=== PATIENT | female | born 1990 | race African-American/Black ===

== ENCOUNTER 2016-09-06 06:20 | Emergency (ER) | payer SELFPAY ==
[2016-09-06 06:34] VITALS: BMI 29.9
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
[2016-09-06] MEDS ORDERED: TORADOL 60 MG VIAL IM ONE (06:41)
[2016-09-06] MEDS ORDERED: TORADOL 60 MG VIAL ONE (07:06)
[2016-09-06] MEDS ORDERED: ADACEL TDaP IM ONE ×2 (07:19→07:20)
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
[2016-09-06] MEDS ORDERED: TETRACAINE HCL ONE (08:08)
[2016-09-06 08:15] VITALS: BP 147/99
[2016-09-06] MEDS ORDERED: GENTAMICIN SULF (OPHTH) AFFEYE ONE (08:30)
[2016-09-06] MEDS ORDERED: NEOSPORIN OINT TOP ONE (08:32)
[2016-09-06] MEDS ORDERED: NEOSPORIN OINT ONE (08:33)
[2016-09-06] MEDS ORDERED: GENTAMICIN SULF (OPHTH) ONE (08:37)
== END 2016-09-06 08:45 | disposition home or self-care (01) ==
LOC: ER 06:20
DX: S05.12XA Contusion of eyeball and orbital tissues, left eye, initial encounter (principal); T14.8 Other injury of unspecified body region; I10 Essential (primary) hypertension; M54.5 Low back pain; Y04.0XXA Assault by unarmed brawl or fight, initial encounter; R51 Headache
CPT/HCPCS: 70450; 70486; 70490; 72125; 90471; 96372; 99282; 99283; J1885

== ENCOUNTER 2016-11-20 18:10 | Emergency (ER) | payer SELFPAY ==
[2016-11-20 18:15] VITALS: BP 149/98; BMI 29.0
--- NOTE | 2016-11-20 18:59 | DR.GENAD ---
HPI - PCP Primary Care Physician: NELDA RIVERA Comment HPI Comment: Pt c/o vaginal spotting today. She had a normal period ~ 2 weeks ago.She admits to recent sexual activity but denies vaginal discharge. She does not use any form of control. She admits to urinary frequency but denies burning upon urination and urinary urgency. - Complaint/Symptoms Chief Complaint:: PT C/O VAGINAL BLEEDING PT STATES SHE JUST HAD HER PERIOD 2 WEEKS AGO AND SHE STARTED BLEEDING WITH CRAMPING AGAIN THIS AM. - Nurses notes reviewed Nurses Notes Review: Yes - Source History Provided: Patient - Mode of Arrival Mode of Arrival: Ambulatory - Timing Onset of Chief Complaint: 11/20/16 - Duration Duration: Unknown - Severity Severity: Mild - Associated Signs and Symptoms Associated Signs and Symptoms: cramping PMH - PMH Past Medical History: Yes Past Medical History: Hypertension Past Surgical History: Yes Surgical History: - Family History History of Family Medical Conditions: Yes Family Medical History: Diabetes Mellitus, Hypertension - Social History Does patient currently use any type of tobacco product: Yes Have you used tobacco products in the last 12 months: Yes Type of Tobacco Use: Cigarettes Does any household member use tobacco: Yes Alcohol Use: Occasionally Do you use any recreational Drugs:: No Lives With: Family Lives Where: Home - infectious screening In the last 2 months have you had wt loss of >10#?: NO Have you had fever, night sweats or hemotysis?: No Have you traveled outside the country in the last 6 months?: No Isolation: Standard ROS - Review of Systems Constitutional: No Symptoms Reported Respiratoy: No Symptoms Reported Cardiovascular: No Symptoms Reported Gastrointestinal/Abdominal: No Symptoms Reported Genitourinary: Frequency, Bleeding. negative: Discharge Neurological: No Symptoms Reported Musculoskeletal: No Symptoms Reported Integumentary: No Symptoms Reported Psychiatric: No Symptoms Reported PE - Vital Signs Vitals: Temperature 98.4 F Pulse Rate 99 Respiratory Rate 20 Blood Pressure [Right Arm] 147/99 Blood Pressure 149/98 O2 Sat by Pulse Oximetry 98 - General Limitations: No Limitations General Appearance: Alert, In No Apparent Distress - Chest Chest Inspection: Normal Inspection - Respiratory Respiratory Exam: Normal Lung Sounds Bilat Respiratory Exam: Bilateral Clear to Auscultation - Cardiovascular Cardiovascular Exam: Regular Rate, Normal Rhythm, Normal Heart Sounds - Abdominal Exam Abdominal Exam: Normal Bowel Sounds, Soft - Extremities Extremities Exam: Normal Inspection - Neurologic Neurological Exam: Alert, Oriented X3, CN II-XII Intact - Psychiatric Psychiatric Exam: Normal Affect, Normal Mood - Skin Skin Exam: Warm, Dry, Intact, Normal Color MDM - Differential Diagnosis Differential Diagnosis: hypermenorrhea, vaginitis, paost coital spotting Course - Reevaluation 1st: Resolved ROR - Labs Reviewed Laboratory: HCG, Qual Negative <10 mIU/mL 11/20/16 19:02 Specimen Type Clean catch urine 11/20/16 18:45 Urine Color Yellow (YELLOW) 11/20/16 18:45 Urine Appearance Slightly hazy (CLEAR) 11/20/16 18:45 Urine pH 6.0 (5.0 - 8.0) 11/20/16 18:45 Ur Specific [place] 1.015 (1.000-1.030) 11/20/16 18:45 Urine Protein Negative (NEGATIVE) 11/20/16 18:45 Urine Glucose (UA) Negative (NEGATIVE) 11/20/16 18:45 Urine Ketones Negative (NEGATIVE) 11/20/16 18:45 Urine Occult Blood 5+ (NEGATIVE) 11/20/16 18:45 Urine Nitrite Negative (NEGATIVE) 11/20/16 18:45 Urine Bilirubin Negative (NEGATIVE) 11/20/16 18:45 Urine Urobilinogen Normal (NORMAL) 11/20/16 18:45 Ur Leukocyte Esterase 2+ (NEGATIVE) 11/20/16 18:45 Urine RBC 0-3 /HPF (NEGATIVE) 11/20/16 18:45 Urine WBC 2-6 /HPF (NEGATIVE) 11/20/16 18:45 Ur Squamous Epith Cells Many /HPF (NEGATIVE) 11/20/16 18:45 Urine Bacteria Trace /HPF (NEGATIVE) 11/20/16 18:45 Urine Trichomonas Moderate /HPF (NEGATIVE) 11/20/16 18:45 Ur Culture Indicated? No/not indicated 11/20/16 18:45 - Diagnosis Discharge Problem: Hypertension, benign, Menometrorrhagia, Trichomoniasis of vagina Hypermenorrhea Qualifiers: Menorrahagia type: with regular cycle Qualified Code(s): N92.0 - Excessive and frequent menstruation with regular cycle - Discharge Plan Condition: Stable - Follow ups/Referrals Follow ups/Referrals: NFD,None [Primary Care Provider] - 3 days - Instructions Instructions: Hypertension, [id number], Dysmenorrhea, [id number]
[2016-11-20 19:01] LABS: BILIRUBIN,URINE NEGATIVE (NEGATIVE); BLOOD/HEMOGLOBIN,URINE 5+ (NEGATIVE); GLUCOSE, URINE NEGATIVE (NEGATIVE); KETONES,URINE NEGATIVE (NEGATIVE); LEUKOCYTE ESTERASE ,URINE 2+ (NEGATIVE); NITRITES,URINE NEGATIVE (NEGATIVE); PROTEIN,URINE NEGATIVE (NEGATIVE); UROBILINOGEN,URINE NORMAL (NORMAL)
[2016-11-20 19:21] LABS: SERUM PREGNANCY TEST, QUAL NEGATIVE <10 mIU/mL
[2016-11-20 19:21] LABS: APPEARANCE,URINE SLIGHTLY HAZY (CLEAR); BACTERIA,URINE TRACE /HPF (NEGATIVE); COLOR,URINE YELLOW (YELLOW); RBC,URINE 0-3 /HPF (NEGATIVE); SQUAMOUS EPITHELIAL CELL,UR MANY /HPF (NEGATIVE); TRICHOMONAS,URINE MODERATE /HPF (NEGATIVE)
[2016-11-20] MEDS ORDERED: ROCEPHIN VIAL 2 GM IM ONE (19:50)
[2016-11-20] MEDS ORDERED: ROCEPHIN VIAL 2 GM ONE (19:52)
[2016-11-20] MEDS ORDERED: FLAGYL TAB 500 MG PO SCH (20:00)
[2016-11-20] MEDS ORDERED: FLAGYL TAB 500 MG PO ONE (20:05)
== END 2016-11-20 20:24 | disposition home or self-care (01) ==
LOC: ER 18:19
DX: N92.0 Excessive and frequent menstruation with regular cycle (principal); I10 Essential (primary) hypertension; N92.1 Excessive and frequent menstruation with irregular cycle; A59.01 Trichomonal vulvovaginitis
CPT/HCPCS: 36415; 81001; 84703; 99282; J0696

== ENCOUNTER 2017-02-05 19:57 | Emergency (ER) | payer SELFPAY ==
[2017-02-05 20:03] VITALS: BMI 31.3
--- NOTE | 2017-02-05 22:15 | DR.GENAD ---
HPI - PCP Primary Care Physician: NELDA Darby HPI Comment HPI Comment: HISTORY BELOW. - Complaint/Symptoms Chief Complaint Doctors Comments: MIGRAINE HEADACHE TIMES FEW DAYS. BP ELEVATED. OUT OF BP MEDICATION. Chief Complaint:: NAUSEA AND MIGRAINE - Nurses notes reviewed Nurses Notes Review: Yes - Source History Provided: Patient - Mode of Arrival Mode of Arrival: Ambulatory - Timing Onset of Chief Complaint: 02/02/17 Came on: Suddenly - Duration Duration: Constant Duration: Days - Severity Severity: Moderate PMH - PMH Past Medical History: Yes Past Medical History: Hypertension Past Surgical History: Yes Surgical History: - Family History History of Family Medical Conditions: Yes Family Medical History: Diabetes Mellitus, Hypertension - Social History Does patient currently use any type of tobacco product: No Have you used tobacco products in the last 12 months: No Type of Tobacco Use: Cigarettes Alcohol Use: Occasionally Do you use any recreational Drugs:: No Lives With: Family Lives Where: Home - infectious screening In the last 2 months have you had wt loss of >10#?: NO Have you had fever, night sweats or hemotysis?: No Have you traveled outside the country in the last 6 months?: No Isolation: Standard ROS - Review of Systems Constitutional: No Symptoms Reported Eyes: No Symptoms Reported ENTM: No Symptoms Reported Respiratoy: No Symptoms Reported Cardiovascular: Other (BP ELEVATED). negative: Chest Pain Gastrointestinal/Abdominal: No Symptoms Reported Genitourinary: No Symptoms Reported Neurological: Headache Integumentary: No Symptoms Reported Hematologic/Lymphatic: No Symptoms Reported Endocrine: No Symptoms Reported All Other Systems: Reviewed and Negative PE - Vital Signs Vitals: Temperature 98.3 F Pulse Rate [Left Brachial] 79 Pulse Rate 94 Respiratory Rate 20 Blood Pressure [Left Arm] 138/88 Blood Pressure [Right Arm] 147/99 Blood Pressure 168/96 O2 Sat by Pulse Oximetry 98 - General Limitations: No Limitations General Appearance: Alert - Head Head Exam: Normal Inspection - Eyes Eye exam: Normal Appearance - ENT ENT Exam: Normal External Ear Exam External Ear Exam: Normal External Inspection TM/Canal Exam: Bilateral Normal Nose Exam: Normal Nose Exam Mouth Exam: Normal Inspection Throat Exam: Normal Inspection - Neck Neck Exam: Trachea Midline - Chest Chest Inspection: Symmetric Chest Wall Rise - Respiratory Respiratory Exam: Normal Lung Sounds Bilat Respiratory Exam: Bilateral Clear to Auscultation - Cardiovascular Cardiovascular Exam: Regular Rate, Normal Rhythm, Normal Heart Sounds - Abdominal Exam Abdominal Exam: Normal Bowel Sounds, Soft. negative: Tenderness - Extremities Extremities Exam: Normal Inspection - Back Back Exam: Normal Inspection - Neurologic Neurological Exam: Alert, Oriented X3, CN II-XII Intact, Normal Gait, Reflexes Normal. negative: Motor Sensory Deficit - Psychiatric Psychiatric Exam: Normal Affect, Normal Mood - Skin Skin Exam: Normal Color MDM - Additional Information Additional Information Obtained From: Family - Differential Diagnosis Differential Diagnosis: MIGRAINE HEADACHE, HYPERTENSION Course - Treatment Treatment: SEE ORDERS. IM PAIN MED AND CLONIDINE PO, PAIN AND HTN IMPROVED. - Education/Counseling Education/Counseling: Patient, Education Educated On: Treatment, Diagnosis, Needs for Follow Up - Diagnosis Discharge Problem: Migraine Qualifiers: Migraine type: without aura Status migrainosus presence: without status migrainosus Intractability: intractable Qualified Code(s): G43.019 - Migraine without aura, intractable, without status migrainosus Hypertension Qualifiers: Hypertension type: essential hypertension Qualified Code(s): I10 - Essential ( primary) hypertension - Discharge Plan Disposition: 01 HOME, SELF-CARE Condition: Stable Prescriptions: [id number] [Fioricet Tab] 1 tab PO Q8H PRN #15 tab PRN Reason: Migraine Headache Clonidine HCl [CATAPRES 0.1 MG TAB *] 0.1 mg PO BID #60 tab - Follow ups/Referrals Follow ups/Referrals: NFD,None [Primary Care Provider] - 3 days - Instructions Instructions: Migraine Headache, [id number]-[id number], Hypertension, Dvah-[id number] Additional Instructions: RETURN TO ED IF WORSE.
[2017-02-05] MEDS ORDERED: CATAPRES TAB 0.1 MG PO ONE (22:22)
[2017-02-05] MEDS ORDERED: ZOFRAN INJ 4 MG VIAL IM ONE (22:22)
[2017-02-05] MEDS ORDERED: TORADOL 60 MG VIAL IM ONE (22:22)
[2017-02-05] MEDS ORDERED: CATAPRES TAB 0.1 MG ONE (22:44)
[2017-02-05] MEDS ORDERED: TORADOL 60 MG VIAL ONE (22:44)
[2017-02-05] MEDS ORDERED: ZOFRAN INJ 4 MG VIAL ONE (22:44)
[2017-02-05 23:28] VITALS: BP 138/88
== END 2017-02-05 23:42 | disposition home or self-care (01) ==
LOC: ER 20:07
DX: G43.019 Migraine without aura, intractable, without status migrainosus (principal); I10 Essential (primary) hypertension
CPT/HCPCS: 96372; 99282; J1885; J2405

== ENCOUNTER 2017-03-15 09:25 | Emergency (ER) | payer SELFPAY ==
[2017-03-15 09:35] VITALS: BMI 30.5
[2017-03-15] MEDS ORDERED: CATAPRES TAB 0.1 MG PO ONE (09:49)
[2017-03-15] MEDS ORDERED: CATAPRES TAB 0.1 MG ONE (09:49)
--- NOTE | 2017-03-15 10:03 | DR.GENAD ---
HPI - PCP Primary Care Physician: NFD - Complaint/Symptoms Chief Complaint Doctors Comments: Patient states that she has had hypertensin since the age of 17. She usually takes clonidine 0.2mg and has been out for 2- 3 weeks. The initial prescription was dispensed in the ED. She has not followed with a physician. She admits to a frontal headache but its no different than usual. Chief Complaint:: PT STATES " I HAVE BEEN OUT OF MY BP MEDS FOR A WHILE AND I HAVE NO MD AND MY HEAD HAS BEEN BOTHER ME AND HURTING ,, AND HER BP AT HOME WAS 176/100..BR Self Treatment fo Chief Complaint: NONE - Source History Provided: Patient - Mode of Arrival Mode of Arrival: Ambulatory - Timing Onset of Chief Complaint: 03/14/17 PMH - PMH Past Medical History: Yes Past Medical History: Hypertension Past Surgical History: Yes Surgical History: - Family History History of Family Medical Conditions: No Family Medical History: Diabetes Mellitus, Hypertension - Social History Does patient currently use any type of tobacco product: Yes Have you used tobacco products in the last 12 months: Yes Type of Tobacco Use: Cigarettes How many years tobacco product used: 5 Does any household member use tobacco: No Alcohol Use: None Do you use any recreational Drugs:: No Lives With: Family Lives Where: Home - infectious screening In the last 2 months have you had wt loss of >10#?: NO Have you had fever, night sweats or hemotysis?: No Have you traveled outside the country in the last 6 months?: No Isolation: Standard ROS - Review of Systems Eyes: No Symptoms Reported ENTM: No Symptoms Reported Respiratoy: No Symptoms Reported Cardiovascular: No Symptoms Reported Gastrointestinal/Abdominal: No Symptoms Reported Genitourinary: No Symptoms Reported Neurological: Headache Musculoskeletal: No Symptoms Reported Integumentary: No Symptoms Reported Hematologic/Lymphatic: No Symptoms Reported Endocrine: No Symptoms Reported Psychiatric: No Symptoms Reported All Other Systems: Reviewed and Negative PE - Vital Signs Vitals: Temperature 98.1 F Pulse Rate [Right Brachial] 78 Pulse Rate 78 Respiratory Rate 18 Blood Pressure [Left Arm] 144/93 Blood Pressure [Right Arm] 148/106 Blood Pressure 162/105 O2 Sat by Pulse Oximetry 97 - General Limitations: No Limitations General Appearance: Alert, In No Apparent Distress - Head Head Exam: Normal Inspection, Atraumatic - Eyes Eye exam: Normal Appearance, PERRL, EOMI - ENT ENT Exam: Normal Exam External Ear Exam: Normal External Inspection TM/Canal Exam: Bilateral Normal Nose Exam: Normal Nose Exam Mouth Exam: Normal Inspection Throat Exam: Normal Inspection - Neck Neck Exam: Normal Inspection, Full ROM - Chest Chest Inspection: Normal Inspection - Respiratory Respiratory Exam: Normal Lung Sounds Bilat Respiratory Exam: Bilateral Clear to Auscultation - Cardiovascular Cardiovascular Exam: Regular Rate, Normal Rhythm - Abdominal Exam Abdominal Exam: Normal Inspection, Normal Bowel Sounds Abdominal Tenderness: negative: RUQ, RLQ, LUQ, LLQ, Epigastrium, Suprapubic, Diffuse, Mild, Moderate, Severe, Other - Extremities Extremities Exam: Normal Inspection, Full ROM - Back Back Exam: Normal Inspection, Full ROM - Neurologic Neurological Exam: Alert, Oriented X3, CN II-XII Intact - Psychiatric Psychiatric Exam: Normal Affect, Normal Mood - Skin Skin Exam: Warm, Dry, Intact Course - Reevaluation 1st: Improved - Education/Counseling Education/Counseling: Education, Counseling Educated On: Treatment, Diagnosis, Prognosis, Needs for Follow Up ROR - Labs Reviewed Result Diagrams: 03/15/17 11:20 Laboratory: Sodium 137 mmol/L (136-145) 03/15/17 11:20 Corrected Sodium TNP 03/15/17 11:20 Potassium 4.0 mmol/L (3.5-5.1) 03/15/17 11:20 Chloride 104 mmol/L (98-107) 03/15/17 11:20 Carbon Dioxide 27.2 mmol/L (21-32) 03/15/17 11:20 BUN 7 mg/dL (7-18) 03/15/17 11:20 Creatinine 0.75 mg/dL (0.55-1.02) 03/15/17 11:20 Est GFR (MDRD) Af Amer > 60 (>60) 03/15/17 11:20 Est GFR (MDRD) Non-Af > 60 (>60) 03/15/17 11:20 Glucose 92 mg/dL (65-99) 03/15/17 11:20 Calcium 8.3 mg/dL (8.5-10.1) L 03/15/17 11:20 - Diagnosis Discharge Problem: Hypertension Qualifiers: Hypertension type: essential hypertension Qualified Code(s): I10 - Essential ( primary) hypertension - Discharge Plan Condition: Stable Prescriptions: Clonidine HCl [CATAPRES 0.2 MG TAB *] 0.2 mg PO DAILY #10 tab - Follow ups/Referrals Follow ups/Referrals: NFD,None [Primary Care Provider] - 3 days - Instructions Instructions: Hypertension, [id number]
[2017-03-15] MEDS ORDERED: TORADOL 60 MG VIAL IM ONE (10:07)
[2017-03-15] MEDS ORDERED: TORADOL 60 MG VIAL ONE (10:08)
[2017-03-15] MEDS ORDERED: CATAPRES TAB 0.2 MG PO ONE (10:47)
[2017-03-15] MEDS ORDERED: CATAPRES TAB 0.2 MG ONE (10:49)
[2017-03-15 11:09] VITALS: BP 144/93
[2017-03-15 11:36] LABS: BLOOD UREA NITROGEN 7 mg/dL (7-18); CALCIUM 8.3 mg/dL (8.5-10.1); CARBON DIOXIDE 27.2 mmol/L (21-32); CHLORIDE 104 mmol/L (98-107); CREATININE 0.75 mg/dL (0.55-1.02); SODIUM 137 mmol/L (136-145); eGFR BLACK RACES > 60 (>60); eGFR NON BLACK RACES > 60 (>60)
== END 2017-03-15 11:56 | disposition home or self-care (01) ==
LOC: ER 09:38
DX: I10 Essential (primary) hypertension (principal)
CPT/HCPCS: 36415; 80048; 96372; 99282; J1885

== ENCOUNTER 2017-05-03 12:08 | Emergency (ER) | payer SELFPAY ==
[2017-05-03 12:14] VITALS: BP 127/86; BMI 31.0
--- NOTE | 2017-05-03 12:22 | DR.GENAD ---
HPI - PCP Primary Care Physician: mariangel - HPI Comment HPI Comment: HISTORY BELOW. - Complaint/Symptoms Chief Complaint Doctors Comments: PATIENT DROP A SAFE ON HER RT ANKLE AND LEG AND FOOT. ABRSIONS AND CUTS NOTED. TD NOT UTD. PROBLEM BEARING WEIGHT. Chief Complaint:: pt stated she dropped a safe on her right ankle yesterday. she was at work today and could not take the pain any longer. - Nurses notes reviewed Nurses Notes Review: Yes - Source History Provided: Patient - Mode of Arrival Mode of Arrival: Ambulatory - Timing Onset of Chief Complaint: 05/02/17 Came on: Suddenly - Duration Duration: Constant Duration: Days - Severity Severity: Moderate PMH - PMH Past Medical History: Yes Past Medical History: Hypertension Past Surgical History: Yes Surgical History: - Family History History of Family Medical Conditions: Yes Family Medical History: Diabetes Mellitus, Hypertension - Social History Does patient currently use any type of tobacco product: Yes Have you used tobacco products in the last 12 months: Yes Type of Tobacco Use: Cigarettes How many years tobacco product used: 7 Does any household member use tobacco: No Alcohol Use: None Do you use any recreational Drugs:: No Lives With: Family Lives Where: Home - infectious screening In the last 2 months have you had wt loss of >10#?: NO Have you had fever, night sweats or hemotysis?: No Have you traveled outside the country in the last 6 months?: No Isolation: Standard ROS - Review of Systems Constitutional: No Symptoms Reported Eyes: No Symptoms Reported ENTM: No Symptoms Reported Respiratoy: No Symptoms Reported Cardiovascular: No Symptoms Reported Gastrointestinal/Abdominal: No Symptoms Reported Genitourinary: No Symptoms Reported Neurological: No Symptoms Reported Musculoskeletal: Right, Leg, Ankle, Foot Integumentary: Bruises, Other (ABRASIONS) Hematologic/Lymphatic: No Symptoms Reported Endocrine: No Symptoms Reported All Other Systems: Reviewed and Negative PE - Vital Signs Vitals: Temperature 98.7 F Pulse Rate 75 Respiratory Rate 16 Blood Pressure [Left Arm] 144/93 Blood Pressure [Right Arm] 148/106 Blood Pressure 127/86 O2 Sat by Pulse Oximetry 100 - General Limitations: No Limitations General Appearance: Alert - Head Head Exam: Normal Inspection - Eyes Eye exam: Normal Appearance - ENT ENT Exam: Normal External Ear Exam External Ear Exam: Normal External Inspection TM/Canal Exam: Bilateral Normal Nose Exam: Normal Nose Exam Mouth Exam: Normal Inspection Throat Exam: Normal Inspection - Neck Neck Exam: Trachea Midline - Chest Chest Inspection: Symmetric Chest Wall Rise - Respiratory Respiratory Exam: Normal Lung Sounds Bilat Respiratory Exam: Bilateral Clear to Auscultation - Cardiovascular Cardiovascular Exam: Regular Rate, Normal Rhythm, Normal Heart Sounds - Abdominal Exam Abdominal Exam: Normal Bowel Sounds, Soft. negative: Tenderness - Extremities Extremities Exam: Normal Inspection (RT ANKLE, FOOT AND LOWER LEG SWOLLEN AND TENDER. PULSE INTACT. ABRASIONS PRESENT.), Tenderness - Back Back Exam: Normal Inspection - Neurologic Neurological Exam: Alert, Oriented X3 - Psychiatric Psychiatric Exam: Normal Affect, Normal Mood - Skin Skin Exam: Erythema MDM - Differential Diagnosis Differential Diagnosis: CONTUSION, FRACTURE SPRAIN RT LEG, ANKLE AND FOOT. Course - Treatment Treatment: SEE ORDERS. - Education/Counseling Education/Counseling: Patient, Education Educated On: Diagnosis, Needs for Follow Up ROR - XRAY XRAY Interpreted by: Radiologist XRAY Findings: REPORT DISCUSS WITH PATIENT. - Diagnosis Discharge Problem: Abrasion Contusion of right lower leg Qualifiers: Encounter type: initial encounter Qualified Code(s): S80.11XA - Contusion of right lower leg, initial encounter Sprain of right ankle Qualifiers: Encounter type: initial encounter Involved ligament of ankle: unspecified ligament Qualified Code(s): S93.401A - Sprain of unspecified ligament of right ankle, initial encounter Contusion of right foot Qualifiers: Encounter type: initial encounter Qualified Code(s): S90.31XA - Contusion of right foot, initial encounter - Discharge Plan Disposition: HOME, SELF-CARE Condition: Stable Prescriptions: Acetaminophen with Codeine [Tylenol/Codeine #3 300-30 mg] 1 tab PO Q4-6H PRN # 15 tab PRN Reason: Pain Cephalexin [KEFLEX CAP 500 MG *] 500 mg PO TID #30 cap - Follow ups/Referrals Follow ups/Referrals: ABDIEL BEARDEN [Primary Care Provider] - 3 days - Instructions Instructions: Acute Ankle Sprain With Phase I Rehab-SportsMed, Musculoskeletal Pain Additional Instructions: RETURN TO ED IF WORSE.
--- NOTE | 2017-05-03 14:09 | RAD ---
HISTORY: Status post crush injury with right leg pain Study: Three views right ankle Comparison: None Findings: No acute cortical disruption or dislocation can be identified. Tissue swelling is noted dorsal and l aterally. IMPRESSION: Tissue swelling without acute bony radiographic abnormality. Reported By:
--- NOTE | 2017-05-03 14:10 | RAD ---
Examination: Right foot, three views History: Trauma Findings: No definite fracture, dislocation or joint space abnormality. Impression: No acute findings. Reported By:
--- NOTE | 2017-05-03 14:11 | RAD ---
Examination: Right lower leg, AP and lateral views History: Trauma Findings: There is no evidence for tibial or fibular fracture/dislocation. There is soft tissue swell ing over the lower leg and lateral malleolus. Impression: Soft tissue swelling, no fracture identified. Reported By:
[2017-05-03] MEDS ORDERED: BACITRACIN ZINC ONE (14:25)
[2017-05-03] MEDS ORDERED: ADACEL TDaP IM ONE ×2 (14:32→14:33)
== END 2017-05-03 14:51 | disposition home or self-care (01) ==
LOC: ER 12:08
DX: S80.11XA Contusion of right lower leg, initial encounter (principal); S93.401A Sprain of unspecified ligament of right ankle, initial encounter; S90.31XA Contusion of right foot, initial encounter; X58.XXXA Exposure to other specified factors, initial encounter; Y92.69 Other specified industrial and construction area as the place of occurrence of the external cause
CPT/HCPCS: 73590; 73610; 73630; 90471; 99282

== ENCOUNTER 2017-09-01 16:23 | Emergency (ER) | payer SELFPAY ==
[2017-09-01 16:27] VITALS: BP 168/88; BMI 25.8
--- NOTE | 2017-09-01 16:42 | DR.GENAD ---
HPI - PCP Primary Care Physician: ABDIEL BEARDEN - HPI Comment HPI Comment: DENIES SYMTOMS. REFER TO PCP FOR FURTHER EVALUATION. - Complaint/Symptoms Chief Complaint Doctors Comments: REQUESTING FOR DIAGNOSTIC TESTING FOR STD. SOME ONE Chief Complaint:: PATIENT WANTS TO GET CHECKED FOR STD'S DUE TO RUMORS GOING AROUND. PATIENT DENIES ANY DISCHARGE OR ANYTHING. - Source History Provided: Patient - Mode of Arrival Mode of Arrival: Ambulatory - Timing Onset of Chief Complaint: 09/01/17 PMH - PMH Past Medical History: Yes Past Medical History: Hypertension Past Surgical History: Yes Surgical History: - Family History History of Family Medical Conditions: Yes Family Medical History: Diabetes Mellitus, Hypertension - Social History Does patient currently use any type of tobacco product: Yes Have you used tobacco products in the last 12 months: Yes Type of Tobacco Use: Cigarettes Does any household member use tobacco: No Do you use any recreational Drugs:: No Lives With: Family Lives Where: Home - infectious screening In the last 2 months have you had wt loss of >10#?: NO Have you had fever, night sweats or hemotysis?: No Have you traveled outside the country in the last 6 months?: No Isolation: Standard PE - Vital Signs Vitals: Temperature 98.3 F Pulse Rate 89 Respiratory Rate 20 Blood Pressure [Left Arm] 144/93 Blood Pressure [Right Arm] 148/106 Blood Pressure 168/88 O2 Sat by Pulse Oximetry 100 - Diagnosis Discharge Problem: Patient request for diagnostic testing - Discharge Plan Disposition: HOME, SELF-CARE Condition: Stable - Follow ups/Referrals Follow ups/Referrals: ABDIEL BEARDEN [Primary Care Provider] - 3 days - Instructions Instructions: Sexually Transmitted Infection Additional Instructions: RETURN TO ED IF WORSE. REQUEST FOR LAB TEST. SEE PCP PHYSICIAL TO EVALUATE FOR TEST THIS WEEK.
== END 2017-09-01 17:14 | disposition home or self-care (01) ==
LOC: ER 16:31
DX: Z11.3 Encounter for screening for infections with a predominantly sexual mode of transmission (principal)
CPT/HCPCS: 99281; 99282

== ENCOUNTER 2022-10-20 08:41 | Observation (INO) ==
[2022-10-20 08:46] VITALS: BMI 34.2
--- NOTE | 2022-10-20 08:54 | DR.CP ---
HPI Time Seen Time Seen by Provider: 10/20/22 08:52 PCP Primary Care Physician: DR. DUEÑAS HPI Comment HPI Comment: PATIENT IS 32YR OLD FEMALE IN ER WITH CHEST PAIN, DIZZINESS, NAUSEA AND DIAPHORESIS THAT STARTED THIS WHILE AT WORK. BP WAS ELEVATED. HAVE EPISODES OF CHEST PAIN BUT NONE THIS SEVERE. HAVE GALL STONES. NAUSEATED BUT NOT VOMITING. BP MEDICATIONS ARE CURRENTLY BEING ADJUSTED. ADDED Complaint Chief Complaint Doctor Comments: CHEST PAIN, DIZZINESS, NAUSEA AND DIAPHORESIS AT WORK TODAY. Chief Complaint:: PT STATES THAT SHE STARTED GETTING REALLY HOT, DIZZY, NAUS EATED AND HAVING CHEST PAIN THIS MORNING WHILE WORKING. PT STATES IT CAME OUT OF NO WHERE AND SHES NEVER FELT LIKE THIS BEFORE. Self Treatment fo Chief Complaint: NITRO AND ASPIRIN PER EMS COVID-19 Coronavirus risk:travel/contact w/high risk person: No Has patient experienced Coronavirus symptoms: No Reviewed Nurses Notes Review: Yes Source History Provided: Patient Mode of Arrival Mode of Arrival: EMS Timing Onset of Chief Complaint: 10/20/22 PMH PMH Past Medical History: Yes Past Medical History: Hypertension Past Surgical History: Yes Surgical History: Family History History of Family Medical Conditions: Yes Family Medical History: Hypertension Social History Does patient currently use any type of tobacco product: Yes Have you used tobacco products in the last 12 months: Yes Type of Tobacco Use: Cigarettes How many years tobacco product used: 10 Does any household member use tobacco: No Alcohol Use: None Do you use any recreational Drugs:: No Lives With: Spouse and Family Lives Where: Home Infectious screening Have you traveled outside the country in the last 6 months?: No Isolation: Standard ROS Review of Systems Constitutional: Diaphoresis, Weakness and Fatigue; negative Fever Eyes: No Symptoms Reported; negative Blurred Vision ENTM: negative Nose Discharge or Nose Congestion Respiratoy: No Symptoms Reported; negative Moist Cough or Short of Breath Cardiovascular: Chest Pain Gastrointestinal/Abdominal: Abdominal Pain (EPIGASTRIC.) and Nausea; negative Diarrhea or Vomiting Genitourinary: No Symptoms Reported; negative Dysuria Neurological: No Symptoms Reported; negative Headache, Weakness or Dizziness Musculoskeletal: No Symptoms Reported Integumentary: No Symptoms Reported Hematologic/Lymphatic: No Symptoms Reported Endocrine: No Symptoms Reported; negative Increased Thirst or Increased Urine Psychiatric: No Symptoms Reported All Other Systems: Reviewed and Negative PE Vitals Vitals: Vital Signs Temperature 97.9 F Pulse Rate 85 Pulse Rate 91 Pulse Rate 83 Pulse Rate 100 Pulse Rate 88 Pulse Rate 85 Pulse Rate 82 Pulse Rate 90 Pulse Rate 87 Pulse Rate 93 Pulse Rate 84 Pulse Rate 90 Pulse Rate 92 Pulse Rate 91 Pulse Rate 92 Pulse Rate 99 Pulse Rate 99 Respiratory Rate 17 Respiratory Rate 25 Respiratory Rate 17 Respiratory Rate 23 Respiratory Rate 32 Respiratory Rate 50 Respiratory Rate 20 Respiratory Rate 22 Respiratory Rate 29 Respiratory Rate 20 Respiratory Rate 32 Respiratory Rate 32 Respiratory Rate 15 Respiratory Rate 21 Respiratory Rate 20 Blood Pressure 137/67 Blood Pressure 135/95 Blood Pressure 137/78 Blood Pressure 140/89 Blood Pressure 141/81 O2 Sat by Pulse Oximetry 99 O2 Sat by Pulse Oximetry 99 O2 Sat by Pulse Oximetry 99 O2 Sat by Pulse Oximetry 100 O2 Sat by Pulse Oximetry 99 O2 Sat by Pulse Oximetry 99 O2 Sat by Pulse Oximetry 99 O2 Sat by Pulse Oximetry 98 O2 Sat by Pulse Oximetry 99 O2 Sat by Pulse Oximetry 98 O2 Sat by Pulse Oximetry 99 O2 Sat by Pulse Oximetry 100 O2 Sat by Pulse Oximetry 100 O2 Sat by Pulse Oximetry 99 O2 Sat by Pulse Oximetry 98 O2 Sat by Pulse Oximetry 99 O2 Sat by Pulse Oximetry 98 General Limitations: No Limitations General Appearance: Alert and In No Apparent Distress Head Head Exam: Normal Inspection Eyes Eye exam: Normal Appearance ENT ENT Exam: Normal Exam, Normal Oropharynx, Normal External Ear Exam and TM's Normal Bilaterally Chest Chest Inspection: Normal Inspection and Symmetric Chest Wall Rise; negative Tenderness Respiratory Respiratory Exam: Normal Lung Sounds Bilat; negative Accessory Muscle Use, Chest Wall Tenderness or Respiratory Distress Respiratory Exam: Bilateral: Clear to Auscultation Cardiovascular Cardiovascular Exam: Regular Rate, Normal Rhythm and Normal Heart Sounds; negative Systolic Murmur or Diastolic Murmur Abdominal Exam Abdominal Exam: Normal Inspection, Normal Bowel Sounds, Soft and Tenderness Extremities Extremities Exam: Normal Inspection and Normal Capillary Refill Back Back Exam: Normal Inspection; negative (R) CVA Tenderness or (L) CVA Tenderness Neurologic Neurological Exam: Alert and Oriented X3; negative Motor Sensory Deficit Psychiatric Psychiatric Exam: Normal Affect and Normal Mood Skin Skin Exam: Intact MDM Differential Diagnosis Differential Diagnosis: Angina, Cholelithasis, Myocardial Infarction, Pericarditis, Pancreatitis, Pneumonia and Pneumothorax COURSE Treatment Treatment: SEE ORDERS DONE WHILE PATIENT WAS IN ER. LABS AND US REPORT DISCUSSED WITH PATIENT AND HER . SURGERY CONSULT DONE AND SHE WILL GO TO OR FOR GALL BLADDER SURGERY TODAY. Consultation Consultation Comments: SURGERY CONSULT WITH DR. CLARK. HE IS IN ER EVALUATING PATIENT. HE WILL TAKE PATIENT TO SURGERY TODAY. Education/Counseling Education/Counseling: Patient and Family Educated On: Diagnosis ROR Labs Reviewed Laboratory Results Reviewed?: Yes Result Diagrams: 10/21/22 04:55 10/21/22 04:55 Laboratory: WBC 7.8 X10^3/uL (3.6-10.0) 10/20/22 09:11 RBC 4.09 X10^6/uL (3.5-5.4) 10/20/22 09:11 Hgb 9.9 g/dL (12.0-16.0) L 10/20/22 09:11 Hct 30.8 % (36.0-47.0) L 10/20/22 09:11 MCV 75.2 fL (80.0-100.0) L 10/20/22 09:11 MCH 24.1 pg (27.0-34.0) L 10/20/22 09:11 MCHC 32.1 g/dL (33.0-35.0) L 10/20/22 09:11 RDW 18.7 % (11.6-16.5) H 10/20/22 09:11 Plt Count 491 X10^3/uL (150.0-450.0) H 10/20/22 09:11 MPV 7.9 fL (7.4-11.0) 10/20/22 09:11 Neut % (Auto) 71.3 % (42.0-75.0) 10/20/22 09:11 Lymph % (Auto) 18.5 % (21.0-51.0) L 10/20/22 09:11 [place] % (Auto) 8.2 % (0.0-13.0) 10/20/22 09:11 Eos % (Auto) 1.1 % (0.9-2.9) 10/20/22 09:11 Baso % (Auto) 0.9 % (0.2-1.0) 10/20/22 09:11 Neut # (Auto) 5.6 x10^3/uL (2.2-4.8) H 10/20/22 09:11 Lymph # (Auto) 1.4 X10^3/uL (1.3-2.9) 10/20/22 09:11 [place] # (Auto) 0.6 x10^3/uL (0.3-0.8) 10/20/22 09:11 Eos # (Auto) 0.1 x10^3/uL (0.0-0.2) 10/20/22 09:11 Baso # (Auto) 0.1 X10^3/uL (0.0-0.1) 10/20/22 09:11 Absolute Nucleated RBC 0.1 /100WBC 10/20/22 09:11 Sodium 136 mmol/L (136-145) 10/20/22 09:11 Corrected Sodium TNP 10/20/22 09:11 Potassium 3.4 mmol/L (3.5-5.1) L 10/20/22 09:11 Chloride 99 mmol/L (98-107) 10/20/22 09:11 Carbon Dioxide 27.5 mmol/L (21-32) 10/20/22 09:11 BUN 12 mg/dL (7-18) 10/20/22 09:11 Creatinine 0.78 mg/dL (0.55-1.02) 10/20/22 09:11 Est GFR (MDRD) Af Amer > 60 (>60) 10/20/22 09:11 Est GFR (MDRD) Non-Af > 60 (>60) 10/20/22 09:11 Glucose 97 mg/dL (65-99) 10/20/22 09:11 Calcium 8.7 mg/dL (8.5-10.1) 10/20/22 09:11 Corrected Calcium TNP 10/20/22 09:11 Total Bilirubin 0.30 mg/dL (0.2-1.0) 10/20/22 09:11 AST 24 Units/L (15-37) 10/20/22 09:11 ALT 27 Units/L (12-78) 10/20/22 09:11 Alkaline Phosphatase 86 Units/L (46-116) 10/20/22 09:11 Troponin I High Sens 6.9 ng/L (4.0-60.0) 10/20/22 15:11 Total Protein 8.2 g/dL (6.4-8.2) 10/20/22 09:11 Albumin 3.9 g/dL (3.4-5.0) 10/20/22 09:11 Globulin 4.3 g/dL (2.5-4.5) 10/20/22 09:11 Albumin/Globulin Ratio 0.9 Ratio (1.1-2.1) L 10/20/22 09:11 Amylase 74 Units/L (25-115) 10/20/22 09:11 Lipase 92 Units/L (73-393) 10/20/22 09:11 HCG, Qual Negative <10 mIU/mL 10/20/22 09:11 Tissue Pathology See comment. 10/20/22 16:15 XRAY XRAY Interpreted by: Radiologist (GALL US REPORT NOTED. CXRAY REPORT NOTED.) and Self (CXRAY WITHOUT ACUTE FINDINGS.) EKG Rate: 88 [place]: Normal Rhythm: NSR Block: None Hypertrophy: None ST: Nonsp (PROLONG QT.) Opioid Opioid Risk Tool Age (Jayy box if 16-45): Yes History of Preadolescent Sexual Abuse: No Total: 1 Total Score Risk Category: Low Risk Copyright: Haddad LR predicting aberrant behaviors Discharge Plan Diagnosis Discharge Problem: Dizziness Abdominal pain Qualifiers: Abdominal location: epigastric Qualified Code(s): R10.13 - Epigastric pain Chest pain Qualifiers: Chest pain type: other chest pain Qualified Code(s): R07.89 - Other chest pain Cholelithiasis Qualifiers: Cholelithiasis location: gallbladder Cholecystitis presence: without cholecystitis Biliary obstruction: without biliary obstruction Qualified Code(s): K80.20 - Calculus of gallbladder without cholecystitis without obstruction Hypertension Qualifiers: Hypertension type: primary hypertension Qualified Code(s): I10 - Essential (primary) hypertension Discharge Plan Patient Disposition: 02 XFER [facility]M HOSP Condition: Stable Orders to Discharge Patient Discharge Orders: Discharge (Routine); Ordered 10/21/22 Ordered By: RINA CLARK
--- NOTE | 2022-10-20 09:15 | EKG ---
Test Reason : HTN Blood Pressure : */* mmHG Vent. Rate : 88 BPM Atrial Rate : 88 BPM P-R Int : 146 ms QRS Dur : 100 ms QT Int : 408 ms P-R-T Axes : 10 43 24 degrees QTc Int : 493 ms Normal sinus rhythm Prolonged QT Abnormal ECG No previous ECGs available Confirmed by Vivek Villafana ([id number]) on 10/21/2022 7:56:58 AM Referred By: Confirmed By: Vivek Villafana
[2022-10-20 09:22] LABS: BASOPHILS # (AUTO) 0.1 X10^3/uL (0.0-0.1); EOSINOPHILS # (AUTO) 0.1 x10^3/uL (0.0-0.2); LYMPHOCYTES # (AUTO) 1.4 X10^3/uL (1.3-2.9); MEAN PLATELET VOLUME 7.9 fL (7.4-11.0); RED CELL DISTRIBUTION WIDTH 18.7 % (11.6-16.5)
[2022-10-20 09:26] LABS: BASOPHILS % (AUTO) 0.9 % (0.2-1.0); EOSINOPHILS % (AUTO) 1.1 % (0.9-2.9); HEMATOCRIT 30.8 % (36.0-47.0); HEMOGLOBIN 9.9 g/dL (12.0-16.0); LYMPHOCYTES % (AUTO) 18.5 % (21.0-51.0); MEAN CORPUSCULAR HEMOGLOBIN 24.1 pg (27.0-34.0); MEAN CORPUSCULAR HGB CONC 32.1 g/dL (33.0-35.0); MEAN CORPUSCULAR VOLUME 75.2 fL (80.0-100.0); MONOCYTES # (AUTO) 0.6 x10^3/uL (0.3-0.8); MONOCYTES % (AUTO) 8.2 % (0.0-13.0); NEUTROPHILS # (AUTO) 5.6 x10^3/uL (2.2-4.8); NEUTROPHILS % (AUTO) 71.3 % (42.0-75.0); PLATELET COUNT 491 X10^3/uL (150.0-450.0); RED BLOOD COUNT 4.09 X10^6/uL (3.5-5.4); WHITE BLOOD COUNT 7.8 X10^3/uL (3.6-10.0)
[2022-10-20 09:40] LABS: ALANINE AMINOTRANSFERASE 27 Units/L (12-78); ALBUMIN 3.9 g/dL (3.4-5.0); ALKALINE PHOSPHATASE 86 Units/L (46-116); AMYLASE 74 Units/L (25-115); ASPARTATE AMINO TRANSFERASE 24 Units/L (15-37); BLOOD UREA NITROGEN 12 mg/dL (7-18); CALCIUM 8.7 mg/dL (8.5-10.1); CARBON DIOXIDE 27.5 mmol/L (21-32); CHLORIDE 99 mmol/L (98-107); CREATININE 0.78 mg/dL (0.55-1.02); GLUCOSE 97 mg/dL (65-99); LIPASE 92 Units/L (73-393); POTASSIUM 3.4 mmol/L (3.5-5.1); SODIUM 136 mmol/L (136-145); TOTAL PROTEIN 8.2 g/dL (6.4-8.2); eGFR NON BLACK RACES > 60 (>60)
--- NOTE | 2022-10-20 10:36 | US ---
HISTORYReason For StudySTUDYGALL BLADDERCOMPARISONNoneTECHNIQUEMultiple roper scale and color flow Doppler images of the right upper quadrant were obtained.FINDINGSThe liver is normal in echotexture and size . No focal intraparenchymal mass or intrahepatic biliary ductal dilatation can be observed. The gallbladder demonstrates multiple stones. The common bile duct is unremarkable measuring 2.5 mm in with. No pericholecystic fluid or gallbladder wall thickening can be observed .The right kidney appears normal in size without focal parenchymal mass or nephrolithiasis. The right kidney measurers 13.1 cm in length. No hydronephrosis or perirenal fluid can be observed. The pancreatic head and body are unremarkable. The pancreatic tail is largely obscured by overlying bowel gas.IMPRESSIONCholelithiasisElectronically signed by: CODY ROBERTS (Oct 20, 2022 10:35:20)
[2022-10-20] MEDS ORDERED: D5 1/2 NS 1,000 ML 1,000 ML IV ONE (12:15)
[2022-10-20] MEDS: D5 1/2 NS 1,000 ML 1,000 ML IV SCH ×2 (12:19→21:13)
[2022-10-20 12:24] LABS: SERUM PREGNANCY TEST, QUAL NEGATIVE <10 mIU/mL
[2022-10-20] MEDS ORDERED: BACTROBAN TOPICAL OINT ONE (14:21)
[2022-10-20] MEDS ORDERED: ANCEF VIAL 1 GRAM ONE (14:35)
[2022-10-20] MEDS ORDERED: LR 1,000 ML IV 1,000 ML IV ONE (14:35)
[2022-10-20] MEDS ORDERED: NS 100 ML IV 100 ML ONE (14:43)
[2022-10-20] MEDS ORDERED: DUONEB 0.5 MG/3 MG (3 mL) NEB ONE (14:45)
--- NOTE | 2022-10-20 14:53 | RAD ---
HISTORYCHEST PAINSTUDYCHEST, PA/LAT ADULTCOMPARISONChest x-ray 04/15/2022FINDINGSThe heart is normal in size. The pulmonary vasculature appears within normal limits. The lungs appear clear. No pneumothorax, pleural effusion, or focal consolidation. No acute osseous abnormality.IMPRESSIONNo acute cardiopulmonary findings .Electronically signed by: Siva Laboy (Oct 20, 2022 14:51:37)
[2022-10-20] MEDS ORDERED: SUPRANE ONE (15:25)
[2022-10-20] MEDS ORDERED: VERSED ONE (15:26)
[2022-10-20] MEDS ORDERED: DILAUDID INJ ONE (15:27)
[2022-10-20] MEDS ORDERED: DIPRIVAN VIAL 20 ML ONE (15:27)
[2022-10-20] MEDS ORDERED: QUELICIN (OR ANECTINE) ONE (15:30)
[2022-10-20] MEDS ORDERED: ZEMURON 100 MG VIAL ONE (15:30)
[2022-10-20] MEDS ORDERED: NORMODYNE INJ 20 MG VIAL ONE (15:45)
[2022-10-20] MEDS ORDERED: ZOFRAN INJ 4 MG VIAL ONE (15:50)
[2022-10-20] MEDS ORDERED: DECADRON INJ ONE (15:50)
[2022-10-20] MEDS ORDERED: BRIDION ONE (16:12)
[2022-10-20] MEDS ORDERED: DILAUDID INJ IVP PRN (16:45)
[2022-10-20] MEDS ORDERED: REGLAN INJ 10 MG VIAL IVP PRN (16:45)
[2022-10-20] MEDS ORDERED: BARHEMSYS INJ IVP PRN (16:45)
[2022-10-20] MEDS ORDERED: ZOFRAN INJ 4 MG VIAL IVP PRN (16:45)
[2022-10-20] MEDS ORDERED: BENADRYL INJ 50 MG VIAL IVP PRN (16:45)
[2022-10-20] MEDS: DILAUDID INJ IVP PRN ×2 (18:27→22:15)
[2022-10-20] MEDS: ZOFRAN INJ 4 MG VIAL IVP PRN ×2 (18:28→23:36)
[2022-10-20] MEDS: ANCEF VIAL 1 GRAM IVP SCH (21:14)
[2022-10-20] MEDS: NICOTINE PATCH TD SCH (21:14)
[2022-10-20] MEDS ORDERED: ANCEF VIAL 1 GRAM IVP SCH (22:00)
[2022-10-21] MEDS ORDERED: CATAPRES TAB 0.1 MG PO ONE (00:25)
[2022-10-21] MEDS: DILAUDID INJ IVP PRN (02:06)
[2022-10-21] MEDS: D5 1/2 NS 1,000 ML 1,000 ML IV SCH (04:16)
[2022-10-21] MEDS: ANCEF VIAL 1 GRAM IVP SCH (05:00)
[2022-10-21 05:43] LABS: BASOPHILS % (AUTO) 0.3 % (0.2-1.0); HEMATOCRIT 29.8 % (36.0-47.0); HEMOGLOBIN 9.4 g/dL (12.0-16.0); LYMPHOCYTES % (AUTO) 7.2 % (21.0-51.0); MEAN CORPUSCULAR HEMOGLOBIN 23.9 pg (27.0-34.0); MEAN CORPUSCULAR HGB CONC 31.5 g/dL (33.0-35.0); MEAN CORPUSCULAR VOLUME 75.8 fL (80.0-100.0); MEAN PLATELET VOLUME 8.7 fL (7.4-11.0); MONOCYTES # (AUTO) 0.6 x10^3/uL (0.3-0.8); MONOCYTES % (AUTO) 4.2 % (0.0-13.0); NEUTROPHILS # (AUTO) 12.7 x10^3/uL (2.2-4.8); NEUTROPHILS % (AUTO) 88.3 % (42.0-75.0); PLATELET COUNT 451 X10^3/uL (150.0-450.0); RED BLOOD COUNT 3.93 X10^6/uL (3.5-5.4); RED CELL DISTRIBUTION WIDTH 18.3 % (11.6-16.5); WHITE BLOOD COUNT 14.4 X10^3/uL (3.6-10.0)
[2022-10-21 05:55] LABS: ALANINE AMINOTRANSFERASE 105 Units/L (12-78); ALBUMIN 3.8 g/dL (3.4-5.0); ALKALINE PHOSPHATASE 104 Units/L (46-116); ASPARTATE AMINO TRANSFERASE 110 Units/L (15-37); BLOOD UREA NITROGEN 9 mg/dL (7-18); CHLORIDE 95 mmol/L (98-107); COR NA(FOR HYPERGLY) 133 mmol/L (136-145); CREATININE 0.79 mg/dL (0.55-1.02); GLUCOSE 125 mg/dL (65-99); POTASSIUM 3.5 mmol/L (3.5-5.1); SODIUM 132 mmol/L (136-145); TOTAL PROTEIN 8.5 g/dL (6.4-8.2); eGFR NON BLACK RACES > 60 (>60)
[2022-10-21] MEDS ORDERED: CONSULT PHARMACY - POTASSIUM & MAGNESIUM XX SCH (07:00)
[2022-10-21 08:11] VITALS: BP 127/80; RESP 20; TEMP 98.2
[2022-10-21] MEDS ORDERED: NORCO 5/325 MG TAB PO ONE (08:22)
[2022-10-21] MEDS: NICOTINE PATCH TD SCH (08:27)
[2022-10-21] MEDS ORDERED: CHLORTHALIDONE PO SCH (09:00)
[2022-10-21] MEDS ORDERED: PROTONIX TAB 40 MG PO SCH (09:00)
[2022-10-21] MEDS ORDERED: NORVASC TAB 10 MG PO SCH (09:00)
[2022-10-21] MEDS ORDERED: K-DUR TAB 20 MEQ PO SCH (09:00)
[2022-10-21 09:35] LABS: FREE T4 (FREE THYROXINE) 0.96 ng/dL (0.76-1.46); TSH (3RD GENERATION) 1.359 uIU/mL (0.358-3.74)
[2022-10-21 10:04] VITALS: PULSE 108; O2SAT 97
== END 2022-10-21 11:30 | disposition home or self-care (01) ==
LOC: ER 08:41 → SURG1 14:28 → MED/SURG 14:28 → SURG1 15:21
PROVIDERS: ADMIT Surgery; ATTEND Surgery
DX: K82.8 Other specified diseases of gallbladder; N83.291 Other ovarian cyst, right side; I10 Essential (primary) hypertension; R10.13 Epigastric pain; R42 Dizziness and giddiness; E87.1 Hypo-osmolality and hyponatremia; K80.12 Calculus of gallbladder with acute and chronic cholecystitis without obstruction; K66.0 Peritoneal adhesions (postprocedural) (postinfection); R07.89 Other chest pain